=== PATIENT | female | born 1985 | race African-American/Black ===

== ENCOUNTER 2016-11-02 17:03 | Emergency (ER) | payer BC, MEDICAID ==
[~2016-11-02] VITALS: Ht 160 cm; Wt 68.0 kg
[2016-11-02] MEDS ORDERED: KETOROLAC 60MG/2ML VIAL IM ONE (21:30)
[2016-11-02 21:34] VITALS: BP 107/76
== END 2016-11-02 22:45 | disposition home or self-care (01) ==
LOC: ER 21:18
DX: S93.401A Sprain of unspecified ligament of right ankle, initial encounter (principal); W10.8XXA Fall (on) (from) other stairs and steps, initial encounter; Y93.89 Activity, other specified; Y92.89 Other specified places as the place of occurrence of the external cause; Y99.8 Other external cause status
CPT/HCPCS: 73610; 96372; 99284; J1885